=== PATIENT | male | born 1990 | race Caucasian/White ===

== ENCOUNTER 2020-07-09 14:16 | Inpatient (IN) | payer OTHER ==
[~2020-07-09] VITALS: Ht 193 cm; Wt 77.6 kg
[2020-07-09] VITALS (12 sets, daily range): BP systolic 94–129; BP diastolic 51–83
--- NOTE | 2020-07-09 14:25 | NUR ---
shyann, from home, c/o nausea vomiting since this morning. Patient a/ox3, eyes closed, but responsive to questions. Attached to the lunchroom monitor. Needs attended.
[2020-07-09] MEDS ORDERED: ONDANSETRON HCL/PF 4 MG/2 ML VIAL ONE (15:09)
[2020-07-09 15:25] LABS: ABG BASE EXCESS -14.9 mmol/L; ABG OXYGEN SATURATION 97.8 % (92.0-98.5); ABG PCO2 18.9 mmHg (35.0-45.0); ABG PH 7.299 (7.350-7.450); AaDO2 18.1 mmHg; COHb 0.8 % (0.5-1.5); MetHb 0.5 % (0.0-1.5); O2Hb 96.5 % (94.0-97.0); SITE, ABG Right Radial; VENT MODE, BG ROOM AIR
[2020-07-09 15:28] LABS: BASOPHILS # (AUTO) 0.1 /CMM (0.0-0.2); BASOPHILS % (AUTO) 0.3 % (0.0-2.0); HEMATOCRIT 42 % (39-51); HEMOGLOBIN 13.9 g/dL (13.5-17.5); LYMPHOCYTES # (AUTO) 3.1 /CMM (0.8-4.8); LYMPHOCYTES % (AUTO) 13.7 % (20.0-44.0); MEAN CORPUSCULAR HGB CONC 33 g/dl (31.0-36.0); MEAN CORPUSCULAR VOLUME 92 fL (80-96); MONOCYTES # (AUTO) 1.5 /CMM (0.1-1.30); MONOCYTES % (AUTO) 6.9 % (2.0-12.0); NEUTROPHILS # (AUTO) 17.6 /CMM (1.8-8.9); NEUTROPHILS % (AUTO) 79.1 % (43.0-81.0); PLATELET COUNT (AUTO) 535 /CMM (150-450); RED BLOOD CELL COUNT(AUTO) 4.53 MIL/uL (4.5-6.0); WHITE BLOOD COUNT (AUTO) 22.2 K/uL (4.3-11.0)
[2020-07-09] MEDS ORDERED: IV NS 0.9% 1,000 ML IV ONE (15:30)
[2020-07-09] MEDS ORDERED: ONDANSETRON HCL/PF - ER 4 MG/2 ML VIAL IV ONE (15:30)
--- NOTE | 2020-07-09 15:45 | NUR ---
patient resting, sent covid swab, and culture on left toe.
[2020-07-09] MEDS ORDERED: IV NS 0.9% 1,000 ML BAG IV ONE (16:00)
[2020-07-09 16:03] LABS: ALANINE AMINOTRANSFERASE 48 U/L (12-78); ALBUMIN 3.7 g/dL (3.4-5.0); ALKALINE PHOSPHATASE 142 U/L (46-116); ASPARTATE AMINOTRANSFERASE 26 U/L (15-37); BILIRUBIN,DIRECT 0.1 mg/dL (0.0-0.2); BILIRUBIN,TOTAL 0.6 mg/dL (0.2-1.0); CALCIUM, SERUM 9.4 mg/dL (8.5-10.1); CHLORIDE 88 mmol/L (98-107); CREATININE 2.5 mg/dL (0.6-1.3); POTASSIUM 5.4 mmol/L (3.5-5.1); SODIUM SERUM 127 mmol/L (136-145); TOTAL PROTEIN, SERUM 8.2 g/dL (6.4-8.2); UREA NITROGEN, BLOOD 41 mg/dL (7-18)
[2020-07-09 16:19] LABS: CARBON DIOXIDE 8 mmol/L (21-32); GLUCOSE 678 mg/dL (74-106)
[2020-07-09 16:21] LABS: MAGNESIUM 2.6 mg/dL (1.8-2.4); PHOSPHORUS 5.2 mg/dL (2.5-4.9)
[2020-07-09 16:22] LABS: ALCOHOL, BLOOD 13 mg/dL (0-0)
[2020-07-09] MEDS ORDERED: MEROPENEM 1,000 MG in IV NS 0.9% 100 ML IV ONE (16:30)
--- NOTE | 2020-07-09 16:41 | NUR ---
PATIENT TAKEN TO CT. SLEEPING BUT AROUSABLE. NO DISTRESS NOTED.
[2020-07-09] MEDS ORDERED: INSULIN REGULAR, HUMAN 100 UNIT in IV NS 0.9% 99 ML IV PRN ×6 (17:00→20:00)
[2020-07-09] MEDS ORDERED: IV NS 0.9% 1,000 ML IV PRN (17:13)
[2020-07-09] MEDS ORDERED: MAG HYDROX/AL HYDROX/SIMETH 30 ML UDC PO PRN (17:30)
[2020-07-09] MEDS ORDERED: Z GUARD REMEDY 2 OZ OINT TP PRN (17:30)
[2020-07-09] MEDS ORDERED: HYDROCODONE/APAP 5/325MG TABLET PO PRN (17:30)
[2020-07-09] MEDS ORDERED: MAGNESIUM HYDROXIDE 30 ML UDC PO PRN (17:30)
[2020-07-09] MEDS ORDERED: ZOLPIDEM TARTRATE 5 MG TABLET PO PRN (17:30)
[2020-07-09] MEDS ORDERED: ACETAMINOPHEN 325 MG TABLET PO PRN (17:30)
[2020-07-09] MEDS ORDERED: ONDANSETRON HCL/PF 4 MG/2 ML VIAL IVP PRN (17:30)
--- NOTE | 2020-07-09 17:53 | NUR ---
patient unable to give urine at this time, dr. gibbons made aware
[2020-07-09] MEDS ORDERED: BLOOD SUGAR DIAGNOSTIC 1 EACH STRIP IN SCH (18:00)
--- NOTE | 2020-07-09 18:11 | NUR ---
GOT BED 256
--- NOTE | 2020-07-09 18:25 | NUR ---
REPORT GIVEN TO ADALID COLLADO. BLOOD SUGAR REPEATED WITH RESULT OF 330, DR. CELESTIN MADE AWARE.
--- NOTE | 2020-07-09 18:54 | NUR ---
PATIENT TRANSFERRED TO ROOM 256 VIA ACLS PROTOCOL. PATIENT IN STABLE CONDITION, ALERT AND ORIENTED. ENDORSED TO THEA COLLADO.
--- NOTE | 2020-07-09 19:30 | NUR ---
RN NOTES RECEIVED PATIENT ASLEEP ON BED. NO SOB OR RESP DISTRESS ON ROOM AIR. SATURATION 99%. SR/ST ON TELE MONITOR. AOX 4 VERBALLY RESPONSIVE. RECEIVED WITH INSULIN DRIP @ 8 U/HR TITRATED ORDERED . ALGORITHM #3 FOLLOWED VERIFIED TO STACY IMPLEMENTATION DIRECTOR STRIPPER LATEX TONIGHT. WITH NEW ORDER TO CHECKED ALSO BMP, MAG, PHOS Q4H AND MISC, ORDER NOTED. KEPT PT CLEAN AND DRY. CALL LIGHT PLACED WITHIN EASY REACH INSTRUCTION PROVIDED. WILL CONTINUE TO MONITOR.
[2020-07-09 20:20] LABS: CALCIUM, SERUM 8.9 mg/dL (8.5-10.1); CREATININE 2.2 mg/dL (0.6-1.3)
[2020-07-09] MEDS: BLOOD SUGAR DIAGNOSTIC 1 EACH STRIP IN SCH ×4 (20:21→23:32)
[2020-07-09 20:24] LABS: MAGNESIUM 2.5 mg/dL (1.8-2.4); PHOSPHORUS 2.5 mg/dL (2.5-4.9)
[2020-07-09] MEDS ORDERED: CEFTRIAXONE 0.5 G in IV D5W 50 ML IV SCH (23:00)
--- NOTE | 2020-07-09 23:15 | NUR ---
TOUR CONDUCTOR NOTES BLOOD SUGAR = 64 MG/DL. INSULIN DRIP ALREADY ON HOLD, ORANGE JUICE 120 ML GIVEN TO THE PATIENT, ABLE TO SWALLOW PO. ALEKSANDAR CHARLES HEEL SHAPER NOTIFIED, WITH ORDER TO STOP THE INSULIN DRIP, CHANGE IV FLUIDS TO D5 1/2 NS @ 100ML/HR, AND CHANGE TO ACCUCHECKS Q4H WITH AGGRESSIVE SLIDING SCALE.
[2020-07-09] MEDS ORDERED: IV D5/0.45 NACL 1,000 ML IV PRN (23:30)
[2020-07-09] MEDS ORDERED: DEXTROSE 50%-WATER 50 ML DISP.SYRIN IV PRN (23:30)
[2020-07-10] VITALS (21 sets, daily range): BP systolic 102–131; BP diastolic 56–77
[2020-07-10] MEDS ORDERED: BLOOD SUGAR DIAGNOSTIC 1 EACH STRIP IN SCH
[2020-07-10] MEDS: BLOOD SUGAR DIAGNOSTIC 1 EACH STRIP IN SCH ×7 (00:27→21:19)
[2020-07-10] MEDS ORDERED: CEFTRIAXONE 1 G VIAL ONE (01:43)
[2020-07-10] MEDS: CEFTRIAXONE 1 G in IV D5W 50 ML IV SCH (01:44)
[2020-07-10 02:05] LABS: CALCIUM, SERUM 8.5 mg/dL (8.5-10.1); CREATININE 1.8 mg/dL (0.6-1.3); POTASSIUM 4.1 mmol/L (3.5-5.1)
[2020-07-10 04:22] LABS: BASOPHILS % (AUTO) 0.2 % (0.0-2.0); EOSINOPHILS % (AUTO) 0.5 % (0.0-6.0); HEMATOCRIT 38 % (39-51); HEMOGLOBIN 12.8 g/dL (13.5-17.5); LYMPHOCYTES # (AUTO) 3.1 /CMM (0.8-4.8); LYMPHOCYTES % (AUTO) 21.8 % (20.0-44.0); MEAN CORPUSCULAR HGB CONC 34 g/dl (31.0-36.0); MEAN CORPUSCULAR VOLUME 89 fL (80-96); MONOCYTES # (AUTO) 1.1 /CMM (0.1-1.30); MONOCYTES % (AUTO) 7.5 % (2.0-12.0); PLATELET COUNT (AUTO) 470 /CMM (150-450); RED BLOOD CELL COUNT(AUTO) 4.21 MIL/uL (4.5-6.0); WHITE BLOOD COUNT (AUTO) 14.3 K/uL (4.3-11.0)
[2020-07-10 04:33] LABS: CALCIUM, SERUM 8.5 mg/dL (8.5-10.1); CREATININE 1.8 mg/dL (0.6-1.3); MAGNESIUM 2.3 mg/dL (1.8-2.4); PHOSPHORUS 2.4 mg/dL (2.5-4.9); POTASSIUM 3.9 mmol/L (3.5-5.1)
[2020-07-10 04:43] LABS: THYROID STIMULATING HORMONE 1.493 uIU/mL (0.358-3.74)
--- NOTE | 2020-07-10 06:24 | NUR ---
RN NOTES PATIENT ASLEEP WELL, DENIES PAIN, AFEBRILE. VSS. NO SIGNIFICANT CHANGES THROUGHOUT THE SHIFT. PATIENT REMAINED QUITE AND VERY LIMITED TO ANSWER QUESTIONS WHEN ASK. LAST BS 114 MG/DL NO INSULIN NEEDED PATENT ON AGGRESSIVE SLIDING SCALE WHEN NEEDED. NO SOB SATURATION KEPT >92%. SR/ST ON TELE MONITOR. WILL CONTINUE TO MONITOR.
--- NOTE | 2020-07-10 07:10 | NUR ---
RN NOTES RECEIVED PATIENT ASLEEP ON BED. NO DISTRESS NOTED, A/OX 4 VERBALLY RESPONDING, ON TELE SR HR IN 90'S , PT KEPT NPO PER MD ORDER, D51/2NS AT 100CC/HR RUNNING R AC IV , SIT CLEAN,D DRY AND INTACT, KEPT PT CLEAN AND DRY. CALL LIGHT PLACED WITHIN EASY REACH INSTRUCTION PROVIDED. WILL CONTINUE TO MONITOR.
[2020-07-10] MEDS: PANTOPRAZOLE 40 MG TABLET.DR PO SCH (07:54)
--- NOTE | 2020-07-10 08:24 | NUR ---
WOUND CARE CONSULT: PT SLEEPING AT THIS TIME. REVIEWED CHART, NURSING DOCUMENTATION AND PHOTO WHICH SHOWS SWELLING AND OPEN AREA TO LEFT GREAT TOE. RECOMMEND DPM CONSULT. DR OCHOA NOTIFIED OF CONSULT REQUEST. WILL SEE PRSrinivas PHILIP IN AGREEMENT WITH PLAN OF CARE.
[2020-07-10 08:45] LABS: CALCIUM, SERUM 8.5 mg/dL (8.5-10.1); CREATININE 1.7 mg/dL (0.6-1.3); POTASSIUM 3.5 mmol/L (3.5-5.1)
[2020-07-10] MEDS: IV NS 0.9% 1,000 ML IV PRN (10:15)
[2020-07-10] MEDS ORDERED: K PHOS NEUTRAL 250 MG TABLET PO ONE (11:00)
--- NOTE | 2020-07-10 12:40 | NUR ---
RN NOTES REPORT GIVEN TO SNEHAL COLLADO FOR CONTINITY OF CARE . PT TRANSFERRED TO ROOM 315-2, MS STATUS , IN STABLE CONDITION.
--- NOTE | 2020-07-10 12:45 | NUR ---
MS RN NOTES RECEIVED PT FROM IC, REPORT GIVEN BY THEA/HEAVEN, PT ARRIVED IN THE UNIT AT 1240 VIA WHEELCHAIR. PT A/O X3-4, [place]/UZBEK SPEAKING, AMBULATORY. PT TOLERATING RA, WITH NO ACUTE RESPIRATORY DISTRESS NOTED. PT DENIES ANY PAIN OR DISCOMFORT AT THIS TIME. VS STABLE AND RECORDED. IVF NS AT 75ML/HR TO RHAND G20, INTACT AND FLUID INFUSING WELL. PIV TO LHAND G20, FLUSHED WITH NS, INTACT NAD OPERATIONAL. PT KEPT COMFORTABLE IN BED. CALL LIGHT KEPT WITHIN REACH. PT'S BED IN LOWEST, LOCKED POSITION WITH SRX2. WILL CONTINUE PLAN OF CARE.
[2020-07-10 14:51] LABS: APPEARANCE,URINE CLEAR (CLEAR); BILIRUBIN,URINE SMALL (NEGATIVE); BLOOD, URINE TRACE Ery/uL (NEGATIVE); COLOR,URINE YELLOW (YELLOW); KETONES,URINE 40 (NEGATIVE); LEUKOCYTE ESTERASE ,URINE NEGATIVE (NEGATIVE); NITRITE, URINE NEGATIVE (NEGATIVE); PROTEIN,URINE TRACE mg/dl (NEGATIVE); UGLUCOSE >=1000 mg/dL (NEGATIVE); UROBILINOGEN,URINE 0.2 EU/dL (0.2)
[2020-07-10 15:36] LABS: BACTERIA,URINE None seen /HPF (None Seen); RBC,URINE 0-2 /HPF (0-2); SQUAMOUS EPITHELIAL CELL,UR Few /HPF (None Seen); WBC,URINE 0-2 /HPF (0-3)
[2020-07-10] MEDS: INSULIN REGULAR, HUMAN 100 UNIT/ML 3 ML VIAL SQ PRN ×2 (16:54→22:40)
--- NOTE | 2020-07-10 18:31 | NUR ---
MS RN NOTES PT REMAINS IN BED, A/O X3-4, GRENADIAN/NORWEGIAN SPEAKING BUT CAN UNDERSTAND AND SPEAK [place]LE [place], AMBULATORY. PT TOLERATING RA, WITH NO ACUTE RESPIRATORY DISTRESS NOTED. PT DENIES ANY PAIN OR DISCOMFORT AT THIS TIME.IVF NS AT 75ML/HR TO RHAND G20, INTACT AND FLUID INFUSING WELL. PIV TO LHAND G20, FLUSHED WITH NS, INTACT NAD OPERATIONAL. ALL NEEDS AND CARE ATTENDED. PT KEPT COMFORTABLE IN BED. CALL LIGHT KEPT WITHIN REACH. PT'S BED IN LOWEST, LOCKED POSITION WITH SRX2. WILL ENDORSE TO INCOMING NIGHT NURSE FOR MAGGIE.
--- NOTE | 2020-07-10 19:50 | NUR ---
MS RN NOTE: PATIENT RESTING IN BED, NO ACUTE DISTRESS NOTED. BREATHING EVEN AND UNLABORED, NO SOB NOTED. IV TO LEFT HAND AND RIGHT HAND IN PLACE, INFUSING NS AT 75ML/HR. NO S/S OF HYPER/HYPOGLYCEMIA NOTED. BED LOCKED AND IN LOWEST POSITION, CALL LIGHT IN REACH. WILL CONTINUE TO MONITOR.
--- NOTE | 2020-07-10 21:30 | NUR ---
MS RN NOTE: PATIENT BLOOD SUGAR LEVEL 173MG/DL, PATIENT TO RECEIVE 4 UNITS OF INSULIN PER SLIDING SCALE. SNACKS AT BEDSIDE, NO S/S OF HYPER/HYPOGLYCEMIA NOTED. WILL CONTINUE TO MONITOR.
[2020-07-11] MEDS: BLOOD SUGAR DIAGNOSTIC 1 EACH STRIP IN SCH ×4 (01:48→13:00)
[2020-07-11] MEDS: CEFTRIAXONE 1 G in IV D5W 50 ML IV SCH (01:48)
[2020-07-11] MEDS: INSULIN REGULAR, HUMAN 100 UNIT/ML 3 ML VIAL SQ PRN ×4 (01:50→09:44)
--- NOTE | 2020-07-11 01:50 | NUR ---
MS RN NOTE: PATIENT BLOOD SUGAR LEVEL 248MG/DL, PATIENT TO RECEIVE 8 UNITS OF INSULIN PER SLIDING SCALE. SNACKS AT BEDSIDE, NO S/S OF HYPER/HYPOGLYCEMIA NOTED. WILL CONTINUE TO MONITOR.
--- NOTE | 2020-07-11 06:35 | NUR ---
MS RN NOTE: PATIENT RESTING IN BED, NO ACUTE DISTRESS NOTED. BREATHING EVEN AND UNLABORED, NO SOB NOTED. IV TO LEFT HAND AND RIGHT HAND IN PLACE, INFUSING NS AT 75ML/HR. PATIENT BLOOD SUGAR LEVEL 196MG/DL, PATIENT TO RECEIVE 4 UNITS OF INSULIN PER SLIDING SCALE. NO S/S OF HYPER/HYPOGLYCEMIA NOTED. BED LOCKED AND IN LOWEST POSITION, CALL LIGHT IN REACH. WILL ENDORSE TO DAY NURSE TO CONTINUE WITH PLAN OF CARE.
--- NOTE | 2020-07-11 07:20 | NUR ---
MS RN NOTES PATIENT IN BED ALERT ORIENTED X 4. NO ACUTE DISTRESS NOTED. BREATHING UNLABORED. NO SOB NOTED. DENIED PAIN AT THIS TIME. IV ACCESS PATENT AND INTACT, NO REDNESS, NO SWELLING NOTED. SAFETY MEASURES IN PLACE. CALL LIGHT WITHIN REACH. WILL CONTINUE TO MONITOR ACCORDINGLY.
[2020-07-11] MEDS: PANTOPRAZOLE 40 MG TABLET.DR PO SCH (07:38)
[2020-07-11] MEDS: IV NS 0.9% 1,000 ML IV PRN (07:45)
[2020-07-11 07:50] LABS: BASOPHILS % (AUTO) 0.6 % (0.0-2.0); EOSINOPHILS % (AUTO) 1.1 % (0.0-6.0); HEMATOCRIT 34 % (39-51); HEMOGLOBIN 11.5 g/dL (13.5-17.5); LYMPHOCYTES # (AUTO) 3.3 /CMM (0.8-4.8); LYMPHOCYTES % (AUTO) 37.4 % (20.0-44.0); MEAN CORPUSCULAR HGB CONC 34 g/dl (31.0-36.0); MEAN CORPUSCULAR VOLUME 90 fL (80-96); MONOCYTES # (AUTO) 0.6 /CMM (0.1-1.30); MONOCYTES % (AUTO) 6.5 % (2.0-12.0); NEUTROPHILS # (AUTO) 4.8 /CMM (1.8-8.9); NEUTROPHILS % (AUTO) 54.4 % (43.0-81.0); PLATELET COUNT (AUTO) 343 /CMM (150-450); RED BLOOD CELL COUNT(AUTO) 3.76 MIL/uL (4.5-6.0); WHITE BLOOD COUNT (AUTO) 8.8 K/uL (4.3-11.0)
[2020-07-11 08:00] VITALS: BP 131/83
[2020-07-11 08:27] LABS: CALCIUM, SERUM 8.4 mg/dL (8.5-10.1); CREATININE 1.2 mg/dL (0.6-1.3); MAGNESIUM 2.2 mg/dL (1.8-2.4); POTASSIUM 3.2 mmol/L (3.5-5.1)
[2020-07-11] MEDS: POTASSIUM CHLORIDE 20 MEQ TAB.PRT.SR PO SCH ×2 (10:31→11:41)
[2020-07-11] MEDS ORDERED: GABA600T12 PO (10:55)
[2020-07-11] MEDS ORDERED: LEVO500T23 PO (10:55)
[2020-07-11] MEDS ORDERED: GABA-536 PO (10:55)
--- NOTE | 2020-07-11 10:56 | NUR ---
MS RN NOTES PATIENT SEEN AND EVALUATED BY LEO HECTOR DNP WITH NEW ORDERS MADE, NOTED AND CARRIED OUT.
[2020-07-11] MEDS ORDERED: K PHOS NEUTRAL 250 MG TABLET PO ONE (11:30)
--- NOTE | 2020-07-11 13:25 | NUR ---
MS HAND SOLE SEWER NOTES PATIENT DISCHARGE HOME WITH STABLE VITAL SIGNS, ALERT ORIENTED X 4. NO ACUTE DISTRESS NOTED. BREATHING UNLABORED. NO SOB NOTED. DENIED PAIN AT THIS TIME. IV ACCESS REMOVED, NO BLEEDING , NO REDNESS, NO SWELLING NOTED. DISCHARGE INSTRUCTIONS GIVEN TO THE PATIENT INCLUDING FOLLOW UP WITH PRIMARY DOCTOR , WOUND CARE AND NEW PRESCRIPTIONS, VERBALIZED UNDERSTANDING. LEFT GREAT TOE DRESSING CLEAN DRY AND INTACT. ALL BELONGINGS ACCOUNTED FOR . ASSISTED TO THE LOBBY, PICKED UP VIA PRIVATE CAR ACCOMPANIED BY FRIEND IN STABLE CONDITION.
== END 2020-07-11 13:25 | disposition home or self-care (01) | DRG 420 ==
LOC: ER 14:19 → ICU 18:23 → MED 07-10 13:06
PROVIDERS: ADMIT Student in an Organized Health Care Education/Training Program; ATTEND Nurse Practitioner Acute Care
DX: E10.10 Type 1 diabetes mellitus with ketoacidosis without coma (principal); G93.41 Metabolic encephalopathy; N17.0 Acute kidney failure with tubular necrosis; E87.5 Hyperkalemia; L03.032 Cellulitis of left toe; K76.89 Other specified diseases of liver; D72.829 Elevated white blood cell count, unspecified; N32.89 Other specified disorders of bladder; E10.621 Type 1 diabetes mellitus with foot ulcer; L97.528 Non-pressure chronic ulcer of other part of left foot with other specified severity; Z79.4 Long term (current) use of insulin
CPT/HCPCS: 36415; 36600; 71045-TC; 73630-TC; 80048-TC; 80061-TC; 80076-TC; 80305; 81000-TC; 82010-TC; 82803-TC; 82962-TC; 83605-TC; 83735-TC; 83935-TC; 84100-TC; 84443-TC; 84484-TC; 85025-TC; 85652-TC; 85730-TC; 87040-TC; 87070-TC; 87081-TC; 87086-TC; C9803-CS; G0378; J0696; J1815; J2185; J2405; J3490; J7030; J7040; J7060

== ENCOUNTER 2020-09-06 20:43 | Inpatient (IN) | payer OTHER ==
[~2020-09-06] VITALS: Ht 193 cm; Wt 90.7 kg
[~2020-09-06 20:43] MED LIST: GABA-536 PO; GABA600T12 PO; LEVO500T23 PO
--- NOTE | 2020-09-06 21:05 | NUR ---
PT AAOX4. BIBSELF C/O WEAKNESS X3 HRS BOX ESTIMATOR. PT STATES LAST BS 400'S HX DM 1. UPON ASSESSMENT BG WAS 176. PT WAS PLACED IN A GOWN, ON MONITOR, AND PULSE OX IN BED 10. NO ACUTE DISTRESS NOTED. LINE INITIATED LAC 20G, BLOOD DRAWN, AND SENT TO LAB. AT BEDSIDE FOR EVAL. AWAITING OTHER ORDERS. WILL CONTINUE TO MONITOR.
[2020-09-06] MEDS ORDERED: IV NS 0.9% 1,000 ML BAG IV ONE (21:30)
[2020-09-06 21:47] LABS: BASOPHILS # (AUTO) 0.1 /CMM (0.0-0.2); BASOPHILS % (AUTO) 0.6 % (0.0-2.0); EOSINOPHILS % (AUTO) 0.1 % (0.0-6.0); HEMATOCRIT 37 % (39-51); HEMOGLOBIN 12.3 g/dL (13.5-17.5); LYMPHOCYTES # (AUTO) 3.2 /CMM (0.8-4.8); LYMPHOCYTES % (AUTO) 19.9 % (20.0-44.0); MEAN CORPUSCULAR HGB CONC 34 g/dl (31.0-36.0); MEAN CORPUSCULAR VOLUME 91 fL (80-96); MONOCYTES # (AUTO) 1.4 /CMM (0.1-1.30); MONOCYTES % (AUTO) 8.6 % (2.0-12.0); NEUTROPHILS # (AUTO) 11.3 /CMM (1.8-8.9); NEUTROPHILS % (AUTO) 70.8 % (43.0-81.0); PLATELET COUNT (AUTO) 455 /CMM (150-450); RED BLOOD CELL COUNT(AUTO) 4.02 MIL/uL (4.5-6.0)
[2020-09-06 22:02] LABS: CALCIUM, SERUM 8.4 mg/dL (8.5-10.1); CREATININE 1.8 mg/dL (0.6-1.3); POTASSIUM 3.5 mmol/L (3.5-5.1)
[2020-09-06 22:05] LABS: ALBUMIN 2.7 g/dL (3.4-5.0); BILIRUBIN,DIRECT 0.1 mg/dL (0.0-0.2); BILIRUBIN,TOTAL 0.4 mg/dL (0.2-1.0); TOTAL PROTEIN, SERUM 6.1 g/dL (6.4-8.2)
--- NOTE | 2020-09-06 22:12 | NUR ---
COVID SWABBED, SENT TO LAB
--- NOTE | 2020-09-06 22:13 | NUR ---
URINE COLLECTED, SENT TO LAB
[2020-09-06 22:22] LABS: APPEARANCE,URINE Clear (CLEAR); BILIRUBIN,URINE MODERATE (NEGATIVE); BLOOD, URINE Moderate Ery/uL (NEGATIVE); COLOR,URINE Yellow (YELLOW); KETONES,URINE 40 (NEGATIVE); LEUKOCYTE ESTERASE ,URINE Negative (NEGATIVE); NITRITE, URINE Negative (NEGATIVE); PH,URINE 5.5 (5.0-8.0); PROTEIN,URINE 30 mg/dl (NEGATIVE); UGLUCOSE 500 MG/DL mg/dL (NEGATIVE); UROBILINOGEN,URINE 0.2 EU/dL (0.2)
[2020-09-06 22:31] LABS: BACTERIA,URINE Rare /HPF (None Seen); SQUAMOUS EPITHELIAL CELL,UR Few /HPF (None Seen); WBC,URINE 0-2 /HPF (0-3)
--- NOTE | 2020-09-06 23:01 | NUR ---
SPOKE TO THE PT REGARDING HOME MEDS, PT STATED ONLY TAKES 2 INSULINS. (DID NOT MENTION NAMES)
--- NOTE | 2020-09-06 23:11 | NUR ---
EMT AT BEDSIDE FOR EKG
--- NOTE | 2020-09-06 23:12 | NUR ---
PA ON THE PHONE WITH SHAQUILLE ALEXANDER FOR ADMISSION. PT WILL BE ADMITTED FOR UNCONTROLLED DIABETES, MED SURG.
--- NOTE | 2020-09-06 23:13 | NUR ---
RADIOLOGY AT BEDSIDE FOR XRAY
--- NOTE | 2020-09-06 23:22 | NUR ---
UPDATED THE PT OF THE PLAN OF CARE.
--- NOTE | 2020-09-07 00:10 | NUR ---
call from lab, rapid covid negative.
--- NOTE | 2020-09-07 00:22 | NUR ---
REPORT GIVEN TO HONEY COLLADO FOR MAGGIE
--- NOTE | 2020-09-07 00:47 | NUR ---
RN ADMITTING NOTE RECEIVED PATIENT FROM ER VIA GURNEY ACCOMPANIED BY ER STAFF. PATIENT IS ALERT AND ORIENTED X4, AMBULATORY. NO COMPLAINTS OF PAIN, AND/OR NAUSEA. PATIENT ON ROOM AIR WITH RESPIRATIONS EVEN AND UNLABORED. COMPREHENSIVE PHYSICAL ASSESSMENT DONE. VITAL SIGNS TAKEN AND RECORDED. NOTED LEFT BIG TOE CELLULITIS. PHOTO TAKEN AND PLACED ON CHART. CALL LIGHT WITHIN REACH, SAFETY MEASURES IN PLACE, WILL CONTINUE MONITOR AND ASSESS. WILL CARRY OUT MD ORDERS ACCORDINGLY.
[2020-09-07 00:56] VITALS: BP 126/77
[2020-09-07] MEDS ORDERED: CEFTRIAXONE 1 G in IV D5W 50 ML IV SCH (01:30)
[2020-09-07] MEDS ORDERED: Z GUARD REMEDY 2 OZ OINT TP PRN (01:30)
[2020-09-07] MEDS ORDERED: ACETAMINOPHEN 325 MG TABLET PO PRN (01:30)
[2020-09-07] MEDS ORDERED: DEXTROSE 50%-WATER 50 ML DISP.SYRIN IV PRN (01:30)
[2020-09-07] MEDS ORDERED: ONDANSETRON HCL/PF 4 MG/2 ML VIAL IVP PRN (01:30)
[2020-09-07] MEDS ORDERED: ZOLPIDEM TARTRATE 5 MG TABLET PO PRN (01:30)
[2020-09-07] MEDS ORDERED: Potassium Chloride 20 MEQ in IV NS 0.9% 1,000 ML IV PRN (01:30)
[2020-09-07] MEDS ORDERED: CEFTRIAXONE 1 G VIAL ONE (01:49)
[2020-09-07 04:00] VITALS: BP 110/66
[2020-09-07] MEDS: BLOOD SUGAR DIAGNOSTIC 1 EACH STRIP IN SCH ×4 (04:55→16:47)
[2020-09-07] MEDS: INSULIN REGULAR, HUMAN 100 UNIT/ML 3 ML VIAL SQ PRN ×3 (04:59→16:50)
[2020-09-07 06:28] LABS: BASOPHILS % (AUTO) 0.4 % (0.0-2.0); EOSINOPHILS % (AUTO) 0.7 % (0.0-6.0); HEMATOCRIT 34 % (39-51); HEMOGLOBIN 11.3 g/dL (13.5-17.5); LYMPHOCYTES # (AUTO) 3.1 /CMM (0.8-4.8); LYMPHOCYTES % (AUTO) 25.2 % (20.0-44.0); MEAN CORPUSCULAR HGB CONC 34 g/dl (31.0-36.0); MEAN CORPUSCULAR VOLUME 92 fL (80-96); MONOCYTES # (AUTO) 1.1 /CMM (0.1-1.30); MONOCYTES % (AUTO) 8.7 % (2.0-12.0); PLATELET COUNT (AUTO) 385 /CMM (150-450); RED BLOOD CELL COUNT(AUTO) 3.68 MIL/uL (4.5-6.0); WHITE BLOOD COUNT (AUTO) 12.4 K/uL (4.3-11.0)
[2020-09-07 06:47] LABS: ALBUMIN 2.2 g/dL (3.4-5.0); BILIRUBIN,TOTAL 0.2 mg/dL (0.2-1.0); CALCIUM, SERUM 7.8 mg/dL (8.5-10.1); CREATININE 1.5 mg/dL (0.6-1.3); MAGNESIUM 2.1 mg/dL (1.8-2.4); PHOSPHORUS 2.3 mg/dL (2.5-4.9); POTASSIUM 3.1 mmol/L (3.5-5.1); TOTAL PROTEIN, SERUM 5.2 g/dL (6.4-8.2)
--- NOTE | 2020-09-07 07:30 | NUR ---
RN CLOSING NOTE PATIENT REMAINS IN ROOM. NO SIGNS OF RESPIRATORY DISTRESS. SAFETY MEASURES IMPLEMENTED, BED IN LOWEST POSITION, LOCKED, SIDE RAILS UP, CALL LIGHT WITHIN REACH. ALL NEEDS AND ORDERS ADDRESSED DURING THE SHIFT. ALL DUE MEDS ADMINISTERED ORDERED & SCHEDULED. NPO STATUS MAINTAINED DUE TO UPCOMING PROCEDURE TODAY. PATIENT KEPT CLEAN AND COMFORTABLE WITHIN THE SHIFT. LAST MEAL 214. WILL ENDORSE TO AM SHIFT RN FOR CONTINUATION OF CARE.
--- NOTE | 2020-09-07 07:30 | NUR ---
SCHOOL BOAT DRIVER OPENING NOTES PATIENT REMAINS ALERT AND ORIENTED. NOT IN ANY ACUTE DISTRESS. SAFETY MEASURES IMPLEMENTED, BED IN LOWEST POSITION, LOCKED, SIDE RAILS UP, CALL LIGHT WITHIN REACH. ALL NEEDS AND ORDERS ADDRESSED DURING THE SHIFT. NPO STATUS MAINTAINED DUE TO UPCOMING PROCEDURE TODAY. PATIENT KEPT CLEAN AND COMFORTABLE WITHIN THE SHIFT. LAST MEAL 214. WILL CONTINUE TO MONITOR.
[2020-09-07 08:00] VITALS: BP 118/82
[2020-09-07] MEDS ORDERED: ENOXAPARIN SODIUM 40 MG/0.4 ML DISP.SYRIN SQ SCH (09:00)
[2020-09-07] MEDS ORDERED: GABAPENTIN 400 MG CAPSULE PO SCH (09:00)
[2020-09-07 12:00] VITALS: BP 116/84
[2020-09-07] MEDS ORDERED: NEUTRA PHOS 1 POWD.PACKET NG ONE (13:00)
[2020-09-07 16:00] VITALS: BP 121/85
--- NOTE | 2020-09-07 19:29 | NUR ---
RN OPENING NOTES: Rec'd pt in bed A&Ox4, Afghan speaking. On room air, no SOB or resp distress noted. Breathing even and unlabored. Pt ambulatory with steady gait. LAC #20 patent and flushed. Dressing c/d/i. Pt stating he wants to leave. Rec'd D/C order from Dr. Aguirre per charge nurse. Safety measures in place. Will continue to monitor.
--- NOTE | 2020-09-07 19:30 | NUR ---
DIE SIZER CLOSING NOTES PATIENT REMAINS IN ROOM. NO SIGNS OF RESPIRATORY DISTRESS. SAFETY MEASURES IMPLEMENTED, BED IN LOWEST POSITION, LOCKED, SIDE RAILS UP, CALL LIGHT WITHIN REACH. ALL NEEDS AND ORDERS ADDRESSED DURING THE SHIFT. ALL DUE MEDS ADMINISTERED ORDERED & SCHEDULED. MD WITH ORDERS FOR DISCHARGE TO HOME. WILL ENDORSE TO NEXT SHIFT FOR MAGGIE.
[2020-09-07 20:00] VITALS: BP 127/88
--- NOTE | 2020-09-07 20:31 | NUR ---
CYTOMETRY TECHNOLOGIST NOTES: Pt A&Ox4, on room air, in stable condition. D/C education and instructions given to pt. Confirms understanding. LAC #20 removed, tip intact. Wound pictures taken. VSS: T 98.6, HR 90, RR 20, O2 97% on room air, BP 127/88. D/C'd via wheelchair accompanied by CLEANER WALL in stable condition.
[2020-09-07] MEDS ORDERED: GABAPENTIN 300 MG CAPSULE PO SCH (22:00)
== END 2020-09-07 20:35 | disposition home or self-care (01) | DRG 420 ==
LOC: ER 20:49 → MEDSG1 09-07 00:37
PROVIDERS: ADMIT Internal Medicine; ATTEND Internal Medicine
DX: E10.10 Type 1 diabetes mellitus with ketoacidosis without coma (principal); Z79.4 Long term (current) use of insulin; D72.829 Elevated white blood cell count, unspecified; Z79.899 Other long term (current) drug therapy; K65.9 Peritonitis, unspecified; K52.9 Noninfective gastroenteritis and colitis, unspecified; N17.0 Acute kidney failure with tubular necrosis; E86.0 Dehydration; E87.6 Hypokalemia; R74.01 Elevation of levels of liver transaminase levels; E43 Unspecified severe protein-calorie malnutrition; E83.39 Other disorders of phosphorus metabolism; E10.40 Type 1 diabetes mellitus with diabetic neuropathy, unspecified
CPT/HCPCS: 36415; 71045-TC; 76705-TC; 78226; 80048-TC; 80053-TC; 80076-TC; 81000-TC; 82010-TC; 82962-TC; 83605-TC; 83690-TC; 83735-TC; 84100-TC; 85025-TC; 87081-TC; A9537; C9803; G0378; J0696; J1815; J3480; J7030; J7050; J7060; U0003